=== PATIENT | male | born 1965 | race Caucasian/White ===

== ENCOUNTER 2017-11-11 10:27 | Inpatient (IN) | payer BC ==
[~2017-11-11 10:27] MED LIST: LIDOCAINE 2% (SDV) 5 ML INJ; ROCURONIUM 50 MG INJ
[2017-11-11] MEDS: LACTATED RINGER'S 1,000 ML IV* (12:11)
[2017-11-11] MEDS ORDERED: CEFAZOLIN 2 GM/50 ML (PMX) 50 ML IVPB (13:00)
[2017-11-11] MEDS ORDERED: CYCLOBENZAPRINE 10 MG TAB PO (15:30)
[2017-11-11] MEDS ORDERED: DIPHENHYDRAMINE 50 MG INJ IV (15:30)
[2017-11-11] MEDS ORDERED: BISACODYL 10 MG SUPP PR (15:30)
[2017-11-11] MEDS ORDERED: NALOXONE (0.4 MG/ML) INJ IV (15:30)
[2017-11-11] MEDS ORDERED: ONDANSETRON 4 MG INJ IV (15:30)
[2017-11-11] MEDS ORDERED: AL HYDROX/MG HYDROX/SIMETH 30 ML CUP PO (15:30)
[2017-11-11] MEDS ORDERED: HYDROmorphONE 0.5 MG/0.5 ML SYG IV (15:30)
[2017-11-11] MEDS ORDERED: CEPASTAT LOZENGE MT (15:30)
[2017-11-11] MEDS: CEFAZOLIN 1 GM/50 ML (PMX) 50 ML IVPB ×2 (15:30→23:12)
[2017-11-11] MEDS ORDERED: ZOLPIDEM 5 MG TAB PO (15:30)
[2017-11-11] MEDS ORDERED: ACETAMINOPHEN 325 MG TAB PO (15:30)
[2017-11-11] MEDS ORDERED: POLYMYXIN/BACITRACIN 1L IRRIG (15:39)
[2017-11-11] MEDS ORDERED: GELATIN SIZE 100 SPONGE (15:41)
[2017-11-11] MEDS ORDERED: SUCCINYLCHOLINE CHLORIDE 100 MG/5 ML SYG IV (15:52)
[2017-11-11] MEDS ORDERED: PROPOFOL 20 ML (15:52)
[2017-11-11] MEDS ORDERED: DEXAMETHASONE 4 MG/ML 1 ML INJ (16:08)
[2017-11-11] MEDS ORDERED: CEFAZOLIN 1 GM INJ (16:08)
[2017-11-11] MEDS ORDERED: ONDANSETRON 4 MG INJ (16:08)
[2017-11-11] MEDS: HEPARIN 1000 UNITS/ML 10 ML INJ (16:27)
[2017-11-11] MEDS: SURGIFOAM POWDER 1 GM KIT (16:27)
[2017-11-11] MEDS: BUPIVACAINE 0.25%/EPI (SDV) 30 ML INJ (16:27)
[2017-11-11] MEDS: THROMBIN 5000 UNIT VIAL (16:31)
[2017-11-11] MEDS: CA CHLORIDE 10% 10 ML SYRINGE (17:06)
[2017-11-11] MEDS ORDERED: NEOSTIGMINE 3 MG/3 ML SYRINGE (18:24)
[2017-11-11] MEDS ORDERED: GLYCOPYRROLATE 0.4 MG INJ (18:24)
[2017-11-11] MEDS ORDERED: hydrALAzine 20 MG INJ (18:38)
[2017-11-11] MEDS: hydrALAzine 20 MG INJ IV (18:42)
[2017-11-11] MEDS: HYDROmorphONE 0.2 MG/ML PCA IV (18:47)
[2017-11-11] MEDS ORDERED: HYDROmorphONE 1 MG/5 ML IV SYRINGE IV (19:00)
[2017-11-11] MEDS: HYDROmorphONE 1 MG/5 ML IV SYRINGE IV (19:11)
[2017-11-11] MEDS: LABETALOL HCL 20MG INJ IV (19:28)
[2017-11-11] MEDS: DOCUSATE SODIUM 100 MG CAP PO (20:43)
[2017-11-11] MEDS: D5W-0.45 NACL + KCL 20 MEQ 1,000 ML IV (21:49)
[2017-11-12] MEDS: D5W-0.45 NACL + KCL 20 MEQ 1,000 ML IV (01:10)
[2017-11-12 05:55] LABS: WHITE BLOOD COUNT 10.8 10^3/ul (4.8-10.8)
[2017-11-12 05:55] LABS: ADD MAN DIFF? NO; BASOPHILS % 0.1 % (0.0-2.0); HEMATOCRIT 40.7 % (42.0-52.0); HEMOGLOBIN 14.4 g/dl (14.0-18.0); LYMPHOCYTES # 0.8 10^3/ul (0.8-2.9); LYMPHOCYTES % 7.8 % (15.0-51.0); MEAN CORPUSCULAR HEMOGLOBIN 32.4 pg (29.0-33.0); MEAN CORPUSCULAR HGB CONC 35.4 g/dl (32.0-37.0); MEAN CORPUSCULAR VOLUME 91.7 fl (82.0-101.0); MEAN PLATELET VOLUME 9.8 fl (7.4-10.4); MONOCYTE # 0.8 10^3/ul (0.3-0.9); MONOCYTES % 7.1 % (0.0-11.0); NEUTROPHIL # 9.1 10^3/ul (1.6-7.5); NEUTROPHILS % 84.6 % (39.0-77.0); PLATELET COUNT 212 10^3/UL (140-415); RED BLOOD COUNT 4.44 10^6/ul (4.70-6.10); RED CELL DISTRIBUTION WIDTH 11.9 % (11.5-14.5)
[2017-11-12 07:09] LABS: ANION GAP 12 (8-16); BLOOD UREA NITROGEN 13 mg/dl (7-20); CALCIUM 8.7 mg/dl (8.4-10.2); CARBON DIOXIDE 26 mmol/L (21-31); CHLORIDE 101 mmol/L (97-110); CREATININE 0.89 mg/dl (0.61-1.24); GLUCOSE 138 mg/dl (70-220); MAGNESIUM 1.9 mg/dl (1.7-2.5); POTASSIUM 4.5 mmol/L (3.5-5.1); SODIUM 134 mmol/L (135-144)
[2017-11-12] MEDS: DOCUSATE SODIUM 100 MG CAP PO (08:05)
[2017-11-12] MEDS: CEFAZOLIN 1 GM/50 ML (PMX) 50 ML IVPB (08:06)
[2017-11-12] MEDS: HYDROCODONE/APAP (10/325) TAB PO ×2 (09:50→13:36)
[2017-11-13] MEDS ORDERED: PANTOPRAZOLE (EC) 40 MG TAB PO (06:00)
== END 2017-11-12 14:03 | disposition home or self-care (01) | DRG 520 ==
LOC: REC 10:27 → MS1 20:00
PROC: 0SB20ZZ Excision of Lumbar Vertebral Disc, Open Approach (ICD-10-PCS; principal; 2017-11-11 14:30)
PROC: 0SB40ZZ Excision of Lumbosacral Disc, Open Approach (ICD-10-PCS; 2017-11-11 14:30)
PROC: 01NB0ZZ Release Lumbar Nerve, Open Approach (ICD-10-PCS; 2017-11-11 14:30)
DX: M51.16 Intervertebral disc disorders with radiculopathy, lumbar region (principal)
CPT/HCPCS: 72020; 80048; 83735; 85025; 86999; 97116; 97161; 97530